=== PATIENT | male | born 1945 | race African-American/Black ===

== ENCOUNTER → 2021-10-18 | Outpatient (CLI) | payer OTHER ==
[~2021-10-18] MED LIST: ALLOPURINOL 10100 M3 PO; APIDRA; CARDURA8 MG PO; CARVEDILOL25 MG PO; GABAPENTIN100 MG PO; IRON325 M1 PO; LEVEMIR100 UNIT/1; LIPITOR40 MG PO; NORVASC10 MG PO; SODIUM BICARBO650 M3 PO; ULTRAM50 MG PO; VALTREX 500 MG500 M1 PO
[2021-10-18 11:11] VITALS: BP 121/79
[2021-10-18 11:18] LABS: HEMOGLOBIN 9.3 gm/dL (14.0-18.0); MCH 29.2 pg (26.0-34.0); MCHC 32.2 g/dL (28.0-37.0); MCV 90.8 fL (80.0-100.0); MPV 8.8 fl. (7.2-11.1); RBC 3.19 mil/uL (4.50-6.00); RDW-CV 14.6 % (10.5-14.5); WBC 7.8 thou/uL (4.0-11.0)
--- NOTE | 2021-10-18 11:22 | EKG ---
[place] [address] ELECTROCARDIOGRAM REPORT Name: BROOKLYNN MCCULLOUGH JR Room: [facility]#: [id number] Admission: 10/18/21 Attend Phys: Ruddy Villarreal Discharge: Date of : 49 Date of Service: 10/18/21 1047 Report #: [id number] THIS REPORT FOR: //name// [facility] Test Date: 2021-10-18 Test Time: 10:47:18 Pat Name: BROOKLYNN MCCULLOUGH Department: Room: Gender: Residential Support Worker: : 1945 Requested By: Jeff Fox Order Number: [id number] Cj MD: Ricky Bobby Measurements Intervals [place] Rate: 66 P: 26 ME: 170 QRS: 18 QRSD: 97 T: 75 QT: 408 QTc: 428 Interpretive Statements Sinus rhythm Baseline wander in lead(s) V6 No previous ECG available for comparison Electronically Signed On 10-18-2021 11:22:07 [employer]PECT[employer] MANAGER by Ricky Bobby [email or web address] <ELECTRONICALLY SIGNED> By: Ricky Bobby MD, [facility] 10/18/21 1122 1047 104 Ricky Bobby MD, FACC /EPI
[2021-10-18 11:32] LABS: APTT 25.9 Seconds (25.0-31.3); INR 1.1; PROTIME 10.8 Seconds (9.20-11.50)
[2021-10-18 11:42] LABS: ANION GAP 10 mmol/L (7-16); BUN 59 mg/dL (7-18); CALCIUM 8.7 mg/dL (8.5-10.1); CHLORIDE 105 mmol/L (98-107); CO2 25 mmol/L (21-32); CREATININE 3.6 mg/dL (0.6-1.3); GLUCOSE 108 mg/dL (70-99); POTASSIUM 4.1 mmol/L (3.5-5.1); SODIUM 140 mmol/L (136-145)
[2021-10-18 11:47] LABS: ALKALINE PHOSPHATASE 68 U/L (46-116); SERUM ASSESSMENT Clear; SGOT 18 U/L (15-37); SGPT 20 U/L (30-65); TOTAL BILIRUBIN 0.2 mg/dL (<0.1-1.0); TOTAL PROTEIN 7.4 g/dL (6.4-8.2); TRIGLYCERIDE 70 mg/dL (<150); VLDL 14 mg/dL (<40)
[2021-10-18 11:59] LABS: CHOLESTEROL 141 mg/dL (<200); HDL CHOLESTEROL 52 mg/dL (>40); LDL CHOLESTEROL 75 mg/dL (<100); TC:HDL 2.7 Ratio (Not establshd)
[2021-10-18 12:45] VITALS: BP 131/66
[2021-10-18 13:00] VITALS: BP 14/72
[2021-10-18 13:15] VITALS: BP 156/74
--- NOTE | 2021-10-18 13:17 | CARD ---
[address] [address] CARDIAC CATH REPORT Name: BROOKLYNN MCCULLOUGH [facility] [id number] Admission: 10/18/21 Attend Phys: Ricky Bobby MD, Discharge: Date of : 49 Report #: [id number] THIS REPORT FOR: cc: Arpit Todd MD, Amgad G. MD Liston, Michael J. MD [facility] ~ APPROVED REPORT Study performed: 10/18/2021 11:16:39 Patient Details Patient Status: Out-Patient Room #: The patient is a 76 year-old male Event Personnel Jeff Fox Steam Fitter, Danya Lala RN RN, Alexa ThomasIS Scrub, Rylie Levi RN Monitor, Olga Lidia Hudson RN Monitor Procedures Performed Art Access - R femoral artery* Left Heart Cath w/or w/o Coronaries [id number] [facility] Hemostasis w/ Mynx Admission/Lab Medications/Medications given during procedure Oxygen Nasal cannula 2 l per min, 0.9% Sodium Chloride IV 75 ml per hr, Lidocaine Subcut 14 ml Procedure Narrative The patient was brought electively to the Cardiac Catheterization Laboratory and was prepped and draped in a sterile manner. The right femoral was infiltrated with 2% Lidocaine subcutaneous anesthesia. IV conscious sedation was used throughout procedure with appropriate monitoring and was performed in the presence of a registered nurse who was an independent trained observer other than the physician performing the procedure. A [place] 6 FR sheath was inserted into the right femoral artery. Coronary angiography was performed using coronary diagnostic catheters. The right coronary system was accessed and visualized with a Diagnostic 6 Fr JR 4 catheter. The left coronary system was accessed and visualized with a Diagnostic 6Fr JL 4 catheter. Closure device was deployed with a Fr MynxGrip 6/7F. The patient tolerated the procedure well and there were no complications associated with the procedure. There was no hematoma. Intraoperative Conscious Sedation Sedation start time: 1216 Case end Time: [place] [address] CARDIAC CATH REPORT Name: BROOKLYNN MCCULLOUGH JR Room: [facility]#: [id number] Admission: 10/18/21 Attend Phys: Ricky Bobby MD, Discharge: Date of : 49 Report #: [id number] Fentanyl 50.0 mcg Versed 2.0 mg Fluoro Time: 1.5 minutes Dose: DAP 75913 cGycm2 1159 mGy Contrast Type and Amount: Visipaque 100 mL Coronary Angiography The patient's coronary anatomy is right dominant. Diagnostic Cath Left Main The left main coronary artery is normal and bifurcates into a left anterior descending and circumflex coronary artery. LAD The left anterior descending coronary artery is normal in its proximal and midportion. Distally there is a 30% narrowing. Diagonal 1 There is a tubular 60% narrowing the proximal portion first diagonal branch. The remainder the vessel is free of significant disease. Diagonal 2 Sick diagonal branch is normal. Circumflex The circumflex coronary artery is normal in its proximal and midportion. Distally there is 10% narrowing. OM1 A very proximal large branch first obtuse marginal branch is normal. OM2 A moderate size distal second obtuse marginal branch is normal. Right Coronary The right coronary artery has 20% narrowing proximally. The remainder the vessel is free of significant disease. R PDA A right PDA has approximately 10% narrowing proximally. Left Ventriculography Left Ventriculography was not performed. Conclusion 1. Minimal atherosclerotic coronary artery disease that is nonocclusive as outlined above. Recommendations 1. Continue medical management and aggressive risk factor modification. <ELECTRONICALLY SIGNED> By: Jeff Fox MD, FACC 10/18/21 1317 131 [id number] Fox MD, FACC /INF
[2021-10-18 13:30] VITALS: BP 157/70
== END | disposition home or self-care (01) ==
LOC: M.CL 06:13
PROVIDERS: Internal Medicine Cardiovascular Disease; ATTEND Internal Medicine
DX: I25.10 Atherosclerotic heart disease of native coronary artery without angina pectoris (principal); I12.0 Hypertensive chronic kidney disease with stage 5 chronic kidney disease or end stage renal disease; E11.22 Type 2 diabetes mellitus with diabetic chronic kidney disease; E11.40 Type 2 diabetes mellitus with diabetic neuropathy, unspecified; N18.6 End stage renal disease; E78.5 Hyperlipidemia, unspecified; M10.9 Gout, unspecified; J45.909 Unspecified asthma, uncomplicated; G47.33 Obstructive sleep apnea (adult) (pediatric); Z98.890 Other specified postprocedural states; Z79.899 Other long term (current) drug therapy; Z20.822 Contact with and (suspected) exposure to COVID-19